=== PATIENT | female | born 1940 | race Two or more races ===

== ENCOUNTER 2020-09-08 07:37 | Day surgery (SDC) | payer OTHER | END 2020-09-08 13:50 | disposition home or self-care (01) | LOC: AMB-ENDOS 07:37 | PROVIDERS: ATTEND Surgery | DX: C18.7 Malignant neoplasm of sigmoid colon (principal); D12.5 Benign neoplasm of sigmoid colon; K64.8 Other hemorrhoids; Z20.822 Contact with and (suspected) exposure to COVID-19 ==